=== PATIENT | male | born 1980 | race Caucasian/White ===

== ENCOUNTER 2019-01-03 11:29 | Day surgery (SDC) | payer MEDICAID, OTHER ==
[2018-12-27 11:45] VITALS: BMI 47.5
[~2019-01-03 11:29] MED LIST: DEXAMETHASONE SOD PHOSPHATE 10 MG/ML 1 ML VIAL IV ONE; HYDROmorphone 0.5 MG/0.5 ML SYRINGE IVP PRN; LACTATED RINGERS 1,000 ML IV SCH; LIDOCAINE 1% 20 ML VIAL (10MG/ML) FOR IV START INTRADERMA PRN; ONDANSETRON 4 MG/2 ML VIAL IVP ONE; SCOPOLAMINE 1.5MG/72HR PATCH TRANSDERM ONE; ceFAZolin IN SWFI 2 GM/20 ML SYRINGE IVP ONE
[2019-01-03] MEDS ORDERED: PROPOFOL 10 MG/ML 20 ML VIAL IV ONE (12:25)
[2019-01-03] MEDS ORDERED: NEOSTIGMINE 1 MG/ML 10 ML VIAL ONE (12:25)
[2019-01-03] MEDS ORDERED: GLYCOPYRROLATE 0.2 MG/ML 2 ML VIAL ONE (12:25)
[2019-01-03] MEDS ORDERED: ROCURONIUM BROMIDE 10 MG/ML 10 ML VIAL IV ONE (12:25)
[2019-01-03] MEDS ORDERED: HYDROmorphone (PF) 1 MG/ML ONE (12:25)
[2019-01-03] MEDS ORDERED: fentaNYL (PF) 50 MCG/ML 2 ML AMP ONE (12:25)
[2019-01-03] MEDS ORDERED: LIDOCAINE 1% INJ 10MG/ML (20 ML MDV) ONE (12:25)
[2019-01-03] MEDS ORDERED: MIDAZOLAM 2 MG/2 ML VIAL ONE (12:25)
[2019-01-03] MEDS ORDERED: BUPIVACAINE (PF) 0.5% 30 ML VIAL SQ ONE ×2 (13:01)
[2019-01-03] MEDS ORDERED: LACTATED RINGERS 1,000 ML IV ONE (13:16)
--- NOTE | 2019-01-03 14:02 | XR ---
EXAMINATION TYPE: XR ankle complete RT DATE OF EXAM: 01/03/2019 COMPARISON: NONE HISTORY: CONGENITAL DEFORMITY OF RT FOOT. FINDINGS: Images were obtained intraoperatively as part of an intraoperative procedure. IMPRESSION: 1. Intraoperative procedure
--- NOTE | 2019-01-03 14:03 | P.OP ---
Date of Procedure: 01/03/19 Preoperative Diagnosis: 1. Post-traumatic bony distal tibia-fibula coalition 2. Recurrent right ankle sprains 3. BMI of 47 Postoperative Diagnosis: same Procedure(s) Performed: 1. Excision of distal tibia-fibula bony coalition 2. Manual application of joint stress by physician for radiography, right ankle Anesthesia: claudette SERRANO Surgeon: Dennis Arnold Installation Technician #1: Fredy Billy Estimated Blood Loss (ml): 10 IV fluids (ml): 750 Pathology: none sent Condition: stable Disposition: PACU Indications for Procedure: The patient is a very pleasant 38-year-old male who has had long-standing history of problems with his right ankle. The patient previously had a fracture of the distal tibia that was managed with surgery in the remote past. He subsequently healed his fracture and eventually had the hardware removal but was left with a posttraumatic bony coalition at the level of the anterior syndesmosis of the ankle. He's had persistent problems with the ankle. He's had recurrent ankle sprains. He was initially managed by an outside orthopedic surgeon with a period of rest, immobilization in a tall boot, and anti- inflammatories. He had x-rays and a computed tomography scan which showed a large bony coalition between the distal tibia and fibula. He is referred to me for definitive treatment. In addition to the plain films and computed tomography scan I obtained an MRI which again showed the coalition with increased signal on the STIR image at the level of the coalition. Clinically the patient's pain was directly over the bony coalition. We discussed continued nonsurgical treatment versus surgical excision. The patient and his mom requested surgery. We discussed potential risks and competitions of surgery including but not limited to risk of anesthesia, superficial infection, deep infection, delayed wound healing, damage to local blood vessels or nerves, intraoperative fracture, postoperative fracture, iatrogenic destabilization of the syndesmosis requiring surgical fixation, late instability of the syndesmosis requiring repeat surgery, continued or worsened pain, generalized to satisfaction with surgery, need for further surgery, DVT, PE, and possibly loss of life or limb. The patient is not voiced her understanding of these potential complications. They also understand the role his BMI plays in his ankle pain. He provided his consent to go forward with surgery. Description of Procedure: The patient was identified and proper following the correct right ankle was marked with my initials. I reviewed the consent form with the patient and all of his questions were answered. The patient was then brought back to the operating room. He was positioned on the or table where general anesthetic and preoperative lites were administered. A tourniquet was applied to the proximal aspect of the right leg. A bump was placed in the right buttock internally rotating the leg. All bony prominences were well-padded. The right leg was then prepped and draped in the standard sterile fashion. Prior to starting surgery timeout was performed identifying the correct patient, operative extremity, and procedure. The patient's leg was then elevated, exsanguinated with an Esmarch bandage, and the tourniquet was inflated to 250 mmHg. I began by outlining the prior surgical scar over the anterolateral aspect of the ankle. Skin incision was made along the scar with a 15 blade scalpel. Dissection was carried down carefully through subcu tissue with tenotomy scissors. The superficial peroneal nerve was identified and carefully retracted. The extensor retinaculum was sharply incised. The anterior compartment muscles were retracted medially. The anterolateral face of the distal tibia was identified. There was a large bony coalition between the distal tibia and fibula. There was an interface that appeared inflamed between the bony coalition of the tibia and the fibula. The level of the incisura was marked out with fluoroscopy and a small microsagittal saw was used to remove the bony coalition. The bony coalition was resected so that there was no interface between the anterior fibula and distal tibia. The cut bone was contoured with a rasp and bone wax was used over the cut surface. Final fluoroscopic images were taken. A manual external rotation stress x-ray was performed which showed no widening of the medial clear space or incisura. I interpreted this as a stable syndesmosis not requiring fixation. The wound was then thoroughly irrigated and closed in layers. The retinaculum was closed with interrupted 0 Vicryl. The deep subcutaneous layer was closed with interrupted 2-0 Vicryl. The skin was closed with a running subcuticular 3-0 Monocryl. The skin closure was reinforced with Brown quarter and stretchy Steri-Strips. Half percent Marcaine was injected around the incision. A sterile dressing consisting of Betadine soaked Adaptic, 4 x 4, and web roll was applied. An Adam wrap was placed over the dressing. The patient was then awoken from the anesthetic, transferred to a gurney, and brought to the recovery room having tolerated the procedure well. Fredy AGUIAR was required as a skilled hotel administrative assistant for patient positioning, retraction, exposure and closure of wounds. Plan: The patient is going to be discharged home as an outpatient. He can weight-bear as tolerated in a tall boot. He was given prescriptions for pain medication. He will follow-up in 2 weeks for weightbearing x-rays out of his boot.
[2019-01-03 14:06] VITALS: TEMP 97
[2019-01-03] MEDS ORDERED: MEPERIDINE 50 MG/ML SYRINGE IVP ONE (14:29)
[2019-01-03 16:08] VITALS: RESP 18
[2019-01-03] MEDS ORDERED: HYDROcodone/APAP 5-325MG 1 EACH TAB PO ONE (16:09)
[2019-01-03 17:14] VITALS: BP 118/72; PULSE 75
== END 2019-01-03 17:17 | disposition home or self-care (01) ==
LOC: OR 11:29
PROVIDERS: ATTEND Orthopaedic Surgery
DX: M89.8X7 Other specified disorders of bone, ankle and foot (principal); M25.371 Other instability, right ankle; K21.9 Gastro-esophageal reflux disease without esophagitis; Z87.891 Personal history of nicotine dependence; Z79.891 Long term (current) use of opiate analgesic; Z79.899 Other long term (current) drug therapy; Z88.1 Allergy status to other antibiotic agents
CPT/HCPCS: 73610; 27635; J2250; J1100; J2710; J2175; J2405; J2001; J3010; J1170; J2704; J0690